=== PATIENT | female | born 1960 ===

== ENCOUNTER → 2022-11-13 07:07 | Outpatient (CLI) | payer OTHER | END | disposition home or self-care (01) | LOC: LAB 07:07 | DX: D63.8 Anemia in other chronic diseases classified elsewhere (principal); E01.8 Other iodine-deficiency related thyroid disorders and allied conditions; I10 Essential (primary) hypertension; N39.0 Urinary tract infection, site not specified; E11.9 Type 2 diabetes mellitus without complications; Z12.11 Encounter for screening for malignant neoplasm of colon; E78.5 Hyperlipidemia, unspecified ==

== ENCOUNTER 2022-11-13 07:46 | Outpatient (CLI) | payer OTHER | END 2022-11-13 07:59 | disposition home or self-care (01) | LOC: TOM 07:46 | DX: Z12.31 Encounter for screening mammogram for malignant neoplasm of breast (principal); N64.4 Mastodynia; Z12.11 Encounter for screening for malignant neoplasm of colon; R10.12 Left upper quadrant pain; R10.32 Left lower quadrant pain ==